=== PATIENT | female | born 1930 ===

== ENCOUNTER 2021-10-21 12:30 | Outpatient (CLI) | payer MEDICARE, MEDICAID | END 2021-10-21 12:31 | disposition home or self-care (01) | LOC: TBSIIMAG 12:30 | PROVIDERS: ATTEND Neurological Surgery | DX: S12.591D Other nondisplaced fracture of sixth cervical vertebra, subsequent encounter for fracture with routine healing (principal) | CPT/HCPCS: 72040 ==